=== PATIENT | female | born 1970 | race Caucasian/White ===

== ENCOUNTER 2018-02-18 15:47 | Emergency (ER) | payer OTHER ==
[~2018-02-18] VITALS: Ht 154.9 cm; Wt 81.6 kg
[~2018-02-18 15:47] MED LIST: AMOXICILLIN500 M1 PO; AUGMENTIN 875-1 EACH PO; BACTRIM DS 8001 TAB PO; BACTRIM DS TAB1 EACH PO; ENDOCET 325 MG-1 TA1 PO
[2018-02-18 15:58] VITALS: BP 127/88
--- NOTE | 2018-02-18 16:14 | ED SKIN/ALLERGY COMPLAINT ---
History of Present Illness General Chief Complaint: General Adult Stated Complaint: RE-CHECK, ?REMOVAL OF DRESSING Source: patient Exam Limitations: no limitations Vital Signs & Intake/Output Vital Signs & Intake/Output Vital Signs Date Time Temp Pulse Resp B/P B/P Pulse O2 O2 Flow FiO2 Mean Ox Delivery Rate 02/18 1558 97.6 106 18 127/88 98 Room Air ED Intake and Output 02/19 0000 02/18 1200 Intake Total Output Total Balance Patient 180 lb Weight Weight Reported by Patient Measurement Method Allergies Coded Allergies: NO KNOWN ALLERGIES (12/12/15) Reconcile Medications Amoxicillin/Potassium Clav (Augmentin 875-125 Tablet) 875 MG-125 MG TABLET 1 TAB PO BID ABSCESS Sulfamethoxazole/Trimethoprim (Bactrim Ds Tablet) 800 MG-160 MG TABLET 1 TAB PO BID ABSCESS Triage Note: 47 Y/O FEMALE RETURNS FOR WOUND CHECK ON BUTTOCKS; WAS EVAL'D IN ED MONDAY FOR ABCESS AND HAD AREA I&D. PT REPORTS IMPROVEMENT IN PAIN AND DRAINAGE. AFEBRILE. Triage Nurses Notes Reviewed? yes Onset: Abrupt Duration: day(s): (5), better, continues in ED Timing: single episode today Severity: moderate, severe Severity Numbers: 6 Location: extremities (LEFT BUTT) Possible Factors: no cause identified No Modifying Factors: none LMP (ages 10-50): unknown : No Patient currently breastfeeds: No HPI: 47-year-old female no past medical history of present evaluation of an abscess recheck. Patient reports she was seen here 2 days ago for an incision and drainage of a left gluteal abscess. Patient reports she is feeling much better. She is tolerating antibiotics. This been no fever or spreading redness. She states the dressing once daily. (Cesario Nieves) Past History Travel History Traveled to [place] past 21 day No Medical History Any Pertinent Medical History? see below for history Neurological: NONE EENT: NONE Cardiovascular: NONE Respiratory: NONE Gastrointestinal: NONE Hepatic: NONE Renal: NONE Musculoskeletal: NONE Psychiatric: NONE Endocrine: NONE Blood Disorders: NONE Cancer(s): NONE TOBACCO SHAKER/Reproductive: NONE Surgical History Surgical History: N Psychosocial History What is your primary language [place] Tobacco Use: Current Daily Use Daily Tobacco Use Amount/Type: =< 4 Cigarettes daily Family History Hx Contributory? No (Cesario Nieves) Review of Systems Review of Systems Constitutional: Reports: no symptoms. EENTM: Reports: no symptoms. Respiratory: Reports: no symptoms. Cardiovascular: Reports: no symptoms. GI: Reports: no symptoms. Genitourinary: Reports: no symptoms. Musculoskeletal: Reports: no symptoms. Skin: Reports: see HPI (ABSCESS). Neurological/Psychological: Reports: no symptoms. Hematologic/Endocrine: Reports: no symptoms. Immunologic/Allergic: Reports: no symptoms. All Other Systems: Reviewed and Negative (Cesario Nieves) Physical Exam Physical Exam General Appearance: well developed/nourished, no apparent distress, alert, awake Head: atraumatic, normal appearance Eyes: Bilateral: normal appearance, EOMI. Ears, Nose, Throat: hearing grossly normal Neck: normal inspection, supple, full range of motion Respiratory: normal breath sounds, chest non-tender, no respiratory distress, lungs clear Cardiovascular: regular rate/rhythm, normal peripheral pulses Peripheral Pulses: 2+ radial (R), 2+ radial (L) Gastrointestinal: normal bowel sounds, soft, non-tender, no organomegaly Back: normal inspection, normal range of motion, no vertebral tenderness Extremities: normal inspection, normal range of motion, no edema, DRAINED ABSCESS PRESENT IN THE LEFT GLUTEAL AREA. eRYTHEMA HAS RECEDED. tHERE STILL LARGE AMOUNT OF INDURATION. tHE AREA IS TENDER TO PALPATION. vERY SMALL AMOUNT OF PURULENT DISCHARGE. pATIENT IS ABLE TO WALK WITHOUT DIFFICULTY. sHE IS ABLE TO SIT NORMALLY. Neurologic/Psych: no motor/sensory deficits, awake, alert, oriented x 3, normal gait Skin: intact, normal color, warm/dry Skin Problem Location: lower extremities Skin Problem Character: abcess (Cesario Nieves) Progress Differential Diagnosis: abscess/cellulitis Plan of Care: Patient is here with a healing abscess. She had an incision and drainage 2 days ago. The abscess appears to be healing well. Culture is showing mixed gurvinder. Patient is afebrile vital signs are stable. Erythema is receding. Due to large amount of induration the packing was removed and replaced patient was instructed to return again in 2 or 3 days for another wound check. Discussed wound care procedures and return precautions patient agrees the plan. Continue both antibiotics. (Cesario Nieves) Departure Departure Disposition: HOME OR SELF CARE Condition: Stable Clinical Impression Primary Impression: Abscess re-check Referrals: Sampson Salgado MD (PCP/Family) Additional Instructions: CONTINUE ANTIBIOTICS FOR FULL COURSE. TYLENOL/IBUPROFGEN FOR PAIN. CHANGE DRESSING DAILY. RETURN IN 2-3 DAYS FOR ANOTHER RECHECK. RETURN SOONER WITH ANY CONCENRS. Departure Forms: Customer Survey General Discharge Information (Cesario Nieves) PA/EMBROIDERY PATTERNMAKER Co-Sign Statement Statement: ED Attending supervision documentation- I saw and evaluated the patient. I have also reviewed all the pertinent lab results and diagnostic results. I agree with the findings and the plan of care as documented in the PA's/EMBROIDERY PATTERNMAKER's documentation. x I have reviewed the ED Record and agree with the PA's/EMBROIDERY PATTERNMAKER's documentation. [] Additions or exceptions (if any) to the PAs/EMBROIDERY PATTERNMAKER's note and plan are summarized below: [] (Maya ALEXANDRE,Terrence)
== END 2018-02-18 16:20 ==
LOC: ERH 15:47
DX: Z48.01 Encounter for change or removal of surgical wound dressing (principal)

== ENCOUNTER 2018-02-20 10:57 | Emergency (ER) | payer OTHER ==
[~2018-02-20] VITALS: Ht 154.9 cm; Wt 82.1 kg
[2018-02-20 11:00] VITALS: BP 130/87
--- NOTE | 2018-02-20 11:02 | ED SKIN/ALLERGY COMPLAINT ---
History of Present Illness General Chief Complaint: Suture Removal/Wound Recheck Stated Complaint: WOUND CHECK Source: patient, old records Exam Limitations: no limitations Vital Signs & Intake/Output Vital Signs & Intake/Output Vital Signs Date Time Temp Pulse Resp B/P B/P Pulse O2 O2 Flow FiO2 Mean Ox Delivery Rate 02/20 1103 98 Room Air 02/20 1100 97.0 88 20 130/87 97 Room Air Allergies Coded Allergies: NO KNOWN ALLERGIES (12/12/15) Reconcile Medications Amoxicillin/Potassium Clav (Augmentin 875-125 Tablet) 875 MG-125 MG TABLET 1 TAB PO BID ABSCESS Sulfamethoxazole/Trimethoprim (Bactrim Ds Tablet) 800 MG-160 MG TABLET 1 TAB PO BID ABSCESS Triage Nurses Notes Reviewed? yes Onset: Gradual Duration: day(s): Timing: recent history Severity: moderate Location: BUTTOCKS : No Patient currently breastfeeds: No HPI: 47YO female presents to emergency department requesting packing removal from abscess. Patient was seen here for buttocks abscess which was drained several days ago. Patient was seen again 2 days ago and packing was replaced. She was instructed to return in 2 days for third wound check. Patient has been changing dressings, taking antibiotics, applying warm compresses as directed. She believes the wound is improving. (Ayesha Martin) Past History Travel History Traveled to [place] past 21 day No Medical History Any Pertinent Medical History? none Neurological: NONE EENT: NONE Cardiovascular: NONE Respiratory: NONE Gastrointestinal: NONE Hepatic: NONE Renal: NONE Musculoskeletal: NONE Psychiatric: NONE Endocrine: NONE Blood Disorders: NONE Cancer(s): NONE COMMISSIONS COORDINATOR/Reproductive: NONE Surgical History Surgical History: N Psychosocial History What is your primary language [place] Tobacco Use: Current Daily Use Daily Tobacco Use Amount/Type: => 5 Cigarettes daily ETOH Use: denies use Illicit Drug Use: denies illicit drug use Family History Hx Contributory? No (Ayesha Martin) Review of Systems Review of Systems Constitutional: Reports: no symptoms. EENTM: Reports: no symptoms. Respiratory: Reports: no symptoms. Cardiovascular: Reports: no symptoms. GI: Reports: no symptoms. Genitourinary: Reports: no symptoms. Musculoskeletal: Reports: no symptoms. Skin: Reports: see HPI. Neurological/Psychological: Reports: no symptoms. Hematologic/Endocrine: Reports: no symptoms. Immunologic/Allergic: Reports: no symptoms. All Other Systems: Reviewed and Negative (Ayesha Martin) Physical Exam Physical Exam General Appearance: well developed/nourished, no apparent distress, alert, awake Head: atraumatic, normal appearance Eyes: Bilateral: normal appearance. Ears, Nose, Throat: hearing grossly normal Neck: normal inspection, supple, full range of motion Respiratory: no respiratory distress Back: normal inspection, normal range of motion Extremities: normal inspection, normal range of motion Neurologic/Psych: awake, alert, oriented x 3 Skin: area of mild erythema and induration to right buttocks with packing in place, minimal tenderness, no active drainage. (Ayesha Martin) Progress Differential Diagnosis: abscess/cellulitis, contact dermatitis, urticaria, abscess packing removal Plan of Care: Area of mild erythema and induration is localized to tissue surrounding packing material. Packing was removed, no active drainage at this time. Based on old records this wound appears to be healing appropriately, will not require further I&D today. Patient to continue antibiotics and warm compresses. She will return if symptoms worsen. The patient agrees with the plan of care. (Ayesha Martin) Departure Departure Disposition: HOME OR SELF CARE Condition: Stable Clinical Impression Primary Impression: Abscess Referrals: Sampson Salgado MD (PCP/Family) Additional Instructions: Continue antibiotics and warm compresses as directed. Return with worsening symptoms or concerns. Please note that there might be incidental findings in your evaluation that are unrelated to the current emergency department visit. Please notify your primary care doctor about this emergency department visit in order to obtain and review all of the testing performed so that these incidental findings can be monitored as needed. If you had an x-ray performed, please understand that some fractures may not be seen on the initial set of x-rays. If your symptoms persist you might need a repeat set of x-rays to check for such a fracture. If you had a laceration evaluated, please understand that foreign bodies such as glass or wood may not be visible to the naked eye or on plain x-rays. If the wound becomes red, swollen, increasingly more painful or if there is any drainage from the wound, please have it reevaluated by a physician for the possibility of a retained foreign body. If you're unable to follow up as outlined in the discharge instructions please return to the emergency department. Thank you for choosing the [facility] Emergency Department for your care. It was a pleasure to serve you today. Departure Forms: Customer Survey General Discharge Information (Sadie WEBB,Ayesha Robins) PA/DEPUTY CHIEF SHERIFF Co-Sign Statement Statement: ED Attending supervision documentation- I saw and evaluated the patient. I have also reviewed all the pertinent lab results and diagnostic results. I agree with the findings and the plan of care as documented in the PA's/DEPUTY CHIEF SHERIFF's documentation. x I have reviewed the ED Record and agree with the PA's/DEPUTY CHIEF SHERIFF's documentation. [] Additions or exceptions (if any) to the PAs/DEPUTY CHIEF SHERIFF's note and plan are summarized below: [] (Maya ALEXANDRE,Terrence)
== END 2018-02-20 11:16 ==
LOC: ERH 10:57
DX: Z48.01 Encounter for change or removal of surgical wound dressing (principal)